=== PATIENT | male | born 1955 | race Two or more races ===

== ENCOUNTER → 2018-10-30 | Outpatient (CLI) | payer OTHER ==
[2018-10-30 12:53] LABS: VANC TR 8.8 mcg/mL (10.0-20.0)
== END | disposition home or self-care (01) ==
LOC: SPEC 12:16 → EEVIPCON 12:16
PROVIDERS: ATTEND Family Medicine
DX: B95.62 Methicillin resistant Staphylococcus aureus infection as the cause of diseases classified elsewhere (principal)
CPT/HCPCS: 36415; 80202